=== PATIENT | male | born 1935 | race African-American/Black ===

== ENCOUNTER 2016-12-25 14:03 | Inpatient (IN) | payer BC ==
--- NOTE | ~2016-12-25 | DS ---
Discharge Summary [facility] [address] [facility] [place]. [address] NAME: ELDA WALKER : 37 STATUS : DIS IN PAT#: [id number] AGE: 81 ADM/REG DATE : 12/25/16 MR#: [id number] REPORT SERV DATE: 12/29/16 DICTATED BY: JR. AVILA WILLIAM JOHN DATE: 12/28/16 REPORT STATUS : Draft TRANSCRIBED BY: MODL DATE: 12/28/16 ADMISSION DATE: 12/25/2016 DISCHARGE DATE: 12/28/2016 DISCHARGE DIAGNOSES: Include: 1. Elevated troponins with no regional wall motion nor systolic dysfunction on echo. 2. Rhabdomyolysis. 3. Hypokalemia. 4. Renal insufficiency. 5. History of right total hip arthroplasty. 6. Diabetes mellitus type 2 with a hemoglobin A1c of 6. 7. Alcohol abuse. 8. Urinary retention. OPERATIONS/PROCEDURES AND TREATMENTS: Include: 1. Chest x-ray done 12/25/2016, which showed COPD without acute process. 2. Right femur x-ray done 12/25/2016, which showed normal alignment of right hip prosthesis with possible loosening of the femoral stem. No acute fracture or dislocation. 3. Hip x-ray done 12/25/2016, which showed same as above. 4. Echocardiogram done 12/27/2016, which showed an ejection fraction of 55% to 60% with mild diastolic dysfunction. Right ventricular size and function were normal. 5. Right femur x-ray done 12/27/2016 showed no acute abnormality without change from 12/25/2016. DISCHARGE MEDICATIONS: Include: 1. Folate 1 mg orally daily. 2. Glipizide 2.5 mg orally every morning. 3. Sliding scale Humalog insulin level 1. 4. Multivitamin one tablet orally daily. 5. Protonix 40 mg orally daily. 6. Potassium chloride 20 mEq orally daily. 7. Flomax 0.4 mg orally daily. 8. Maxzide 25 mg daily. 9. Tylenol as needed. 10.Colace 100 mg orally daily as needed. HOSPITAL COURSE: The patient is a 81-year-old black male, presented to the emergency room on 12/25/2016 after a fall with right hip pain. The patient had been living on his own for about three years, was barely functional and had progressive dementia. 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 On the morning of presentation, he did not answer the door, eventually accessed was gained to the house and the patient was in bed, said that he had been "drinking," fell on the bathroom floor and was there for an undetermined amount of time. He came in to the emergency room with complaint of right hip pain. Workup in the emergency room was significant for stable vital signs. However, his BUN and creatinine were 35 and 1.8. Baseline was unknown. CK was 7151 and troponin I was 0.05. Urinalysis showed Discharge Summary [facility] [address] [place]. [address] NAME: ELDA WALKER : 37 STATUS : DIS IN PAT#: [id number] AGE: 81 ADM/REG DATE : 12/25/16 MR#: [id number] REPORT SERV DATE: 12/29/16 DICTATED BY: JR. AVILA WILLIAM JOHN DATE: 12/28/16 REPORT STATUS : Draft TRANSCRIBED BY: VICENTE DATE: 12/28/16 no evidence of urinary tract infection. 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 The patient was admitted to the hospital for rhabdomyolysis. He was placed on IV fluid normal saline at 125 mL/h and his creatine kinase gradually fell. By the day of discharge, the patient's CK was 936. His BUN and creatinine gradually improved during the same time. Discharge BUN is 19, creatinine is 1.4. I suspect this is baseline for the patient. The patient also developed urinary retention. Bladder scan showed over 800 mL of urine. He was placed on Flomax and Melgar catheter was placed, and a voiding trial was done on the day of discharge. Unfortunately, he urinated about every 15 minutes for only very small amounts; therefore, a Melgar catheter will be replaced and would recommend a voiding trial again in about one week with continuation of the Flomax. Regarding the patient's elevated troponin, I discussed with the family, they did not desire a full ischemic workup. We did an echocardiogram. There was no evidence of regional wall motion abnormalities or hypocontractility. We will defer further workup at this time. Regarding alcohol abuse, the patient showed no evidence of delirium tremens. [facility]2016 for rehabilitation. Followup issues include: 1. Check BMP early next week. 2. Voiding trial in about one week. 3. Physical therapy and occupational therapy. DIET: ADA. ACTIVITY: As tolerated. For discharge exam and laboratory, please see daily progress note. This discharge took 40 minutes for patient encounter, coordination of care, and documentation. NATHALY/VICENTE Jorge Avila Jr, MD / [id number] CC: Jorge Avila Jr, MD Glenn Newman, M.D.
--- NOTE | ~2016-12-25 | HP ---
History And Physical [place] [id number] [facility] [place]. [address] NAME: ELDA WALKER : 37 STATUS : ADM Efra PAT#: [id number] AGE: 81 ADM/REG DATE : 12/25/16 MR#: [id number] REPORT SERV DATE: 12/25/16 DICTATED BY: JR. AVILA WILLIAM JOHN DATE: 12/25/16 REPORT STATUS : Draft TRANSCRIBED BY: MODMarcela DATE: 12/25/16 DATE OF ADMISSION: 12/25/2016 PRIMARY CARE PHYSICIAN: Florencio Lawrence MD, also sees Dr. Mast at the ID. HISTORY OF PRESENT ILLNESS: A 81-year-old black male presents to the emergency room with a fall and right hip pain. The patient has been living on his own for about three years. He is barely functional per the family and has dementia per the family. The patient denies any history of memory loss. The patient apparently has a manager user experience who comes in occasionally, also has a neighbor who checks on him daily to make sure he is taking his medicines. This morning the neighbor went to check on the medicines, the patient did not answer the door, and eventually, the neighbor was able to gain access to the house, and the patient was in bed and reportedly was "drinking," fell in the bathroom, and spent an unknown amount of time on the bathroom floor. Subsequently, the patient complains of right hip pain. He denies all other complaints. The patient is quite vague about his alcohol use. PAST MEDICAL HISTORY: Includes, 1. Hypertension. 2. Chronic kidney disease. 3. Diabetes mellitus type 2. 4. History of dementia. 5. Right total hip arthroplasty done by Dr. Hansen. 6. History of positive PPD. HOME MEDICATIONS: Include Lipitor 10 mg orally daily, Glucotrol 2.5 daily, multivitamin daily, omeprazole 20 daily, potassium chloride 20 mEq daily, tramadol 50 twice a day as needed, Maxzide 37.5/25 daily. ALLERGIES: NO KNOWN DRUG ALLERGIES. FAMILY HISTORY: Mother in her 40s of homicide. Father who at an unknown age was an alcoholic. SOCIAL HISTORY: Lives alone in [place]. 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 He drinks vodka, unsure amount. He smokes about a pack per day, again unsure duration. Denies illicit drugs. Code status was discussed with the patient. He is likely not of decision making capacity, however, his daughter, who is power of mergers and acquisitions attorney, was unable to be contacted. He states he desires full resuscitative measures. REVIEW OF SYSTEMS: Negative in a full review of systems except for right hip pain. PHYSICAL EXAMINATION: VITAL SIGNS: Temperature 97.5, blood pressure 222/111, heart rate 92, respiratory rate of History And Physical [address] [address] NAME: ELDA WALKER : 37 STATUS : ADM Efra PAT#: [id number] AGE: 81 ADM/REG DATE : 12/25/16 MR#: [id number] REPORT SERV DATE: 12/25/16 DICTATED BY: JR. AVILA WILLIAM JOHN DATE: 12/25/16 REPORT STATUS : Draft TRANSCRIBED BY: VICENTE DATE: 12/25/16 21. GENERAL: Patient was alert. He was partially oriented. HEENT: Pupils are equal, round, react to light. Extraocular motions intact. Sclerae anicteric. Oropharynx clear. NECK: Supple without jugular venous distention, thyromegaly, or bruits. Mucosal membranes were dry. CARDIOVASCULAR: S1, S2 without gallop, murmur, or rub. There is regular rate and rhythm. Heart sounds were distant. LUNGS: Clear to auscultation bilaterally with symmetrical chest rise. ABDOMEN: Soft, nontender, bowel sounds present. No hepatosplenomegaly. EXTREMITIES: No clubbing, cyanosis, edema. NEUROLOGIC: Cranial nerves 2 through 12 were intact. Strength and sensation were full and equal throughout. MUSCULOSKELETAL: There was no significant pain with flexion of the hip nor external rotation. There was no pain with pressure applied to the hip. LYMPH NODE SURVEY: Negative in the cervical and supraclavicular region. PSYCHIATRIC: Mood and affect were appropriate. LABORATORY DATA: White count 9.5, hemoglobin 12.8, platelets 232. PT of 14.5 with an INR 1.1, PTT 34.9. Sodium 143, potassium 3.3, chloride 101, bicarb 34, BUN 35, creatinine 1.8, glucose 121, magnesium 2, calcium 10.2, lipase 220, CK 7151, troponin I 0.05. Urinalysis without pyuria. Chest x-ray showed hyperlucency. No infiltrate. Right femur x-ray showed hip prosthesis in normal alignment with possible loosening. No fracture or dislocation. EKG shows sinus rhythm at rate 92 with a right bundle-branch block and left anterior fascicular block. ASSESSMENT AND PLAN: A 81-year-old black male with, 1. Rhabdomyolysis. Give IV fluids, normal saline 125 mL/h. Recheck BMP and CK in the morning. 2. Hypertension. We will continue his Maxzide. 3. Hypokalemia. Replace per protocol. 4. Renal insufficiency of unknown chronicity. We will send for records of old labs from primary care provider, Florencio Lawrence. 5. Elevated troponin without symptoms. The EKG showed no acute ST or T-wave change. We will get serial troponin for trending. 6. History of right total hip arthroplasty with possible loose hardware. The family seems to indicate that he has known that he potentially had loosening, but did not desire revision in the past. 7. Diabetes mellitus type 2. We will perform Accu-Cheks, sliding scale insulin level 1. We will also check a glycohemoglobin. 8. Alcohol use of unknown amount. We will monitor for delirium tremens. 9. Dementia. 10.Full code. 11.Observation. 12.I will follow this patient. History And Physical [address] [address] NAME: ELDA WALKER : 37 STATUS : ADM Efra PAT#: [id number] AGE: 81 ADM/REG DATE : 12/25/16 MR#: [id number] REPORT SERV DATE: 12/25/16 DICTATED BY: JR. AVILA WILLIAM JOHN DATE: 12/25/16 REPORT STATUS : Draft TRANSCRIBED BY: VICENTE DATE: 12/25/16 NATHALY/VICENTE Jorge Avila Jr, MD / [id number] CC: Jorge Avila Jr, MD
[~2016-12-25 14:03] MED LIST: ARICEPT10 PO; DONEPEZIL; FERROUS SULFATE; FERROUS SULFATE OR; KLOR-CON M2020 MEQ PO; LORTAB 5 PO; MAX25 PO; MULTIVIT/MIN PO; NASONEX NAS; NEXIUM40 PO; NORV5 PO; TRIAMTERENE-HCTZ; UREA CREAM; VESICARE10 MG PO; Vesicare; ZOCOR40 PO; [UNRECOGNIZED DRUG - OTHER] EX
[2016-12-25 14:08] LABS: WBC (NOT ORDERED) (RFLEX) 0 (0-5)
[2016-12-25 14:13] LABS: BASOPHILS 0.2 %; BASOPHILS ABSOLUTE 0.02 10/3/uL (0.0-0.16); EOSINOPHILS 0.5 %; EOSINOPHILS ABSOLUTE 0.05 10/3/uL (0.0-0.53); HEMATOCRIT 38.8 % (40.0-51.0); HEMOGLOBIN 12.8 g/dL (13.6-17.8); IMMATURE GRANULOCYTES 0.1 %; IMMATURE GRANULOCYTES ABSOLUTE 0.01 10/3/uL (0.0-0.11); LYMPHOCYTES 14.4 %; LYMPHOCYTES ABSOLUTE 1.37 10/3/uL (0.67-4.30); MEAN CORPUSCULAR HEMOGLOB 28.4 pg (26.0-34.0); MEAN PLATELET VOLUME 10.4 fL (9.2-13.0); MONOCYTES 10.1 %; MONOCYTES ABSOLUTE 0.96 10/3/uL (0.21-1.20); NEUTROPHILS 74.7 %; NEUTROPHILS ABSOLUTE 7.13 10/3/uL (2.02-8.40); PLATELET COUNT 232 10/3/uL (150-400); RBC DISTRIBUTION WIDTH 14.1 % (12.0-16.0); RED CELL COUNT 4.51 10/6/uL (4.7-6.1); WHITE BLOOD CELLS 9.5 10/3/uL (4.5-10.5)
[2016-12-25 14:16] LABS: MANUAL DIFF NO %
[2016-12-25 14:18] LABS: ASCORBIC ACID (UR NOT ORDER) NEG (NEG); BILIRUBIN, URINE NEGATIVE (NEG); ER URINALYSIS TAT 0 Hrs 11 Mins; KETONE, URINE NEGATIVE (NEG); LEUKOCYTE ESTERASE(NOT OR NEG (NEG); NITRITE (URINE) NEG (NEG)
[2016-12-25 14:23] LABS: INTERNATIONAL NORMAL RATI 1.1 UNITS (-); PARTIAL THROMBO TIME 34.9 SEC (22.5-37.2); PROTIME (NOT ORD) 14.5 SEC (12.0-14.5)
[2016-12-25 14:41] LABS: BUN (BLOOD UREA NITROGEN) 35 MG/DL (6-23); CALCIUM, SERUM 10.2 MG/DL (8.5-10.4); CHEST PAIN PROFILE TAT 0 Hrs 34 Mins; CHLORIDE, SERUM 101 MMOL/L (96-112); CO2 (CARBON DIOXIDE) 34 MMOL/L (24-34); CREATININE 1.75 MG/DL (0.70-1.30); GFR AFRICAN AMERICAN 42 ML/MIN (>=60); GFR NON AFRICAN AMERICAN 36 ML/MIN (>=60); GLUCOSE, SERUM 121 MG/DL (60-99); POTASSIUM, SERUM 3.3 MMOL/L (3.5-5.3); SODIUM, SERUM 143 MMOL/L (135-148); TROPONIN I 0.05 NG/ML (<0.05)
[2016-12-25 14:52] LABS: CPK 7154 U/L (0-200)
[2016-12-25] MEDS ORDERED: MAX25 PO (16:05)
[2016-12-25] MEDS ORDERED: PRILO PO (16:05)
[2016-12-25] MEDS ORDERED: LIPITOR10 PO (16:05)
[2016-12-25] MEDS ORDERED: GLUCOTROL5 PO (16:05)
[2016-12-25] MEDS ORDERED: ULTRAM50 PO (16:05)
[2016-12-25] MEDS ORDERED: KDUR20 PO (16:06)
[2016-12-25] MEDS ORDERED: CENTRUM PO (16:07)
[2016-12-25] MEDS ORDERED: NORCO1 TA1 (16:07)
[2016-12-26 01:52] LABS: POTASSIUM, SERUM 3.4 MMOL/L (3.5-5.3)
[2016-12-26 01:54] LABS: TROPONIN I 0.12 NG/ML (<0.05)
[2016-12-26 03:24] LABS: BASOPHILS 0.5 %; BASOPHILS ABSOLUTE 0.04 10/3/uL (0.0-0.16); EOSINOPHILS 1.5 %; EOSINOPHILS ABSOLUTE 0.13 10/3/uL (0.0-0.53); HEMATOCRIT 35.2 % (40.0-51.0); HEMOGLOBIN 11.8 g/dL (13.6-17.8); IMMATURE GRANULOCYTES 0.2 %; IMMATURE GRANULOCYTES ABSOLUTE 0.02 10/3/uL (0.0-0.11); LYMPHOCYTES 22.7 %; LYMPHOCYTES ABSOLUTE 1.91 10/3/uL (0.67-4.30); MANUAL DIFF NO %; MEAN CORPUS HGB CONC 33.5 g/dL (32.0-36.0); MEAN CORPUSCULAR HEMOGLOB 28.9 pg (26.0-34.0); MEAN CORPUSCULAR VOLUME 86.3 fL (80-100); MEAN PLATELET VOLUME 10.6 fL (9.2-13.0); MONOCYTES 8.4 %; MONOCYTES ABSOLUTE 0.71 10/3/uL (0.21-1.20); NEUTROPHILS 66.7 %; NEUTROPHILS ABSOLUTE 5.61 10/3/uL (2.02-8.40); PLATELET COUNT 213 10/3/uL (150-400); RBC DISTRIBUTION WIDTH 13.9 % (12.0-16.0); RED CELL COUNT 4.08 10/6/uL (4.7-6.1); WHITE BLOOD CELLS 8.4 10/3/uL (4.5-10.5)
[2016-12-26 04:06] LABS: BUN (BLOOD UREA NITROGEN) 33 MG/DL (6-23); CHLORIDE, SERUM 109 MMOL/L (96-112); CO2 (CARBON DIOXIDE) 30 MMOL/L (24-34); CPK 4941 U/L (0-200); GFR AFRICAN AMERICAN 43 ML/MIN (>=60); GFR NON AFRICAN AMERICAN 38 ML/MIN (>=60); GLUCOSE, SERUM 98 MG/DL (60-99); POTASSIUM, SERUM 3.4 MMOL/L (3.5-5.3); SODIUM, SERUM 148 MMOL/L (135-148)
[2016-12-26 04:07] LABS: CALCIUM, SERUM 9.1 MG/DL (8.5-10.4)
[2016-12-27 04:45] LABS: CALCIUM, SERUM 9.1 MG/DL (8.5-10.4); CHLORIDE, SERUM 106 MMOL/L (96-112); CO2 (CARBON DIOXIDE) 29 MMOL/L (24-34); CREATININE 1.41 MG/DL (0.70-1.30); GFR AFRICAN AMERICAN 55 ML/MIN (>=60); GFR NON AFRICAN AMERICAN 47 ML/MIN (>=60); GLUCOSE, SERUM 107 MG/DL (60-99); SODIUM, SERUM 145 MMOL/L (135-148)
[2016-12-27 04:46] LABS: BUN (BLOOD UREA NITROGEN) 25 MG/DL (6-23); CPK 2420 U/L (0-200); POTASSIUM, SERUM 3.4 MMOL/L (3.5-5.3)
[2016-12-28 05:52] LABS: CALCIUM, SERUM 9.1 MG/DL (8.5-10.4); CHLORIDE, SERUM 103 MMOL/L (96-112); CO2 (CARBON DIOXIDE) 26 MMOL/L (24-34); CPK 936 U/L (0-200); CREATININE 1.35 MG/DL (0.70-1.30); GFR AFRICAN AMERICAN 57 ML/MIN (>=60); GFR NON AFRICAN AMERICAN 50 ML/MIN (>=60); GLUCOSE, SERUM 90 MG/DL (60-99); POTASSIUM, SERUM 3.4 MMOL/L (3.5-5.3); SODIUM, SERUM 142 MMOL/L (135-148); TROPONIN I 0.02 NG/ML (<0.05)
[2016-12-28 05:54] LABS: BUN (BLOOD UREA NITROGEN) 19 MG/DL (6-23)
[2017-02-13] MEDS ORDERED: NORV5 PO (13:47)
[2017-02-13] MEDS ORDERED: BACIT TOP (13:48)
[2017-02-13] MEDS ORDERED: PRILO PO (13:48)
[2017-02-13] MEDS ORDERED: MAGOX4 PO (13:48)
[2017-02-13] MEDS ORDERED: MOMUD PO (13:49)
[2017-02-13] MEDS ORDERED: BISR PR (13:49)
[2017-02-13] MEDS ORDERED: VITC500 PO (13:49)
[2017-02-13] MEDS ORDERED: ULTRAM50 PO (13:50)
[2017-02-14] MEDS ORDERED: [UNRECOGNIZED DRUG - OTHER] PO (11:47)
[2017-02-14] MEDS ORDERED: FLEETS ENEMA PR (11:48)
[2017-03-26] MEDS ORDERED: SILVER SULFADIAZINE TOP (11:47)
[2017-05-27] MEDS ORDERED: SANTYL TOP (07:26)
[2017-05-27] MEDS ORDERED: ULTRAM50 PO (07:29)
[2017-06-21] MEDS ORDERED: IODOSORB TOP (10:10)
[2017-06-21] MEDS ORDERED: ZINC220C PO (10:13)
[2017-06-21] MEDS ORDERED: NORCO1 TA1 PO (10:15)
[2017-06-24] MEDS ORDERED: JUVEN PO (08:05)
[2017-06-24] MEDS ORDERED: SANTYL OINTMENT T (08:15)
== END 2016-12-28 18:14 | DRG 565 ==
LOC: ER 14:03 → CDU1 16:44 → CDU2 18:40
PROVIDERS: Internal Medicine; Physician Assistant
DX: T79.6XXA Traumatic ischemia of muscle, initial encounter (principal); I45.2 Bifascicular block; F03.90 Unspecified dementia, unspecified severity, without behavioral disturbance, psychotic disturbance, mood disturbance, and anxiety; E87.6 Hypokalemia; E11.9 Type 2 diabetes mellitus without complications; F10.10 Alcohol abuse, uncomplicated; F17.210 Nicotine dependence, cigarettes, uncomplicated; R33.9 Retention of urine, unspecified; N28.9 Disorder of kidney and ureter, unspecified; R78.9 Finding of unspecified substance, not normally found in blood; W19.XXXA Unspecified fall, initial encounter; M25.551 Pain in right hip; Z79.84 Long term (current) use of oral hypoglycemic drugs; Z81.1 Family history of alcohol abuse and dependence; Z96.641 Presence of right artificial hip joint
CPT/HCPCS: 71010; 73501-RT; 73552-RT; 80048; 81001; 82550; 82962; 83036; 83690; 83735; 84132; 84484; 85025; 85610; 85730; 93005; 93306; 97110-GO; 97162-GP; 97166-GO; 99285; A9270-GY; J0360; J3411

== ENCOUNTER 2017-01-04 13:55 | Inpatient (IN) | payer BC ==
--- NOTE | ~2017-01-04 | OP ---
Record Of Operation [facility] [address] [place]. [address] NAME: ELDA WALKER : 37 STATUS : ADM IN PAT#: [id number] AGE: 81 ADM/REG DATE : 01/04/17 MR#: [id number] REPORT SERV DATE: 01/15/17 DICTATED BY: FAISAL BOWLING DATE: 01/15/17 REPORT STATUS : Draft TRANSCRIBED BY: MODL DATE: 01/15/17 DATE OF PROCEDURE: 01/15/2017 PREOPERATIVE DIAGNOSIS: Paraphimosis, chronic with distal urethral fistula/erosion. 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 OPERATIVE PROCEDURE: Debridement of distal urethra with circumcision. ANESTHESIA: General inhalation. SURGEON: Dr. Bowling. ESTIMATED BLOOD LOSS: 10 mL. SPECIMENS: Foreskin involving area of penile constricting tissue from paraphimosis. DRAINS: One #16 suprapubic tube placed at a previous procedure. IMMEDIATE POSTOP: Stable. DESCRIPTION OF PROCEDURE: The patient was brought into surgery suite, given general inhalational anesthetic by LMA. After debridement of the distal penile urethra which was necrotic, there appeared to be no viable urethral tissue noted at least ventrally. Hemostasis was obtained with electrocautery at this point, and the urethra was copiously irrigated. Following this, a circumcision was performed. This did involve skin which did overlie the fistulous erosion tract. The constricting paraphimotic skin was dissected free using a combination of blunt and sharp dissection and Bovie cautery where indicated. The skin edges were approximated, sutured together using interrupted 3-0 chromic catgut. The closure looked nice and clean at the end of the procedure. It did involve closing over the area where the urethra had been and the necrotic urethra had been excised. The urethral meatus remained patent; however, there was no continuity between the meatus and the more proximal urethra. At the close of procedure, sterile dressing was placed on the penis. The patient was awakened and sent to the recovery in stable condition. /VICENTE Faisal Bowling M.D. / [id number] CC: Record Of Operation [address] [place]. [address] NAME: ELDA WALKER : 37 STATUS : ADM IN [facility]#: [id number] AGE: 81 ADM/REG DATE : 01/04/17 MR#: [id number] REPORT SERV DATE: 01/15/17 DICTATED BY: FAISAL BOWLING DATE: 01/15/17 REPORT STATUS : Draft TRANSCRIBED BY: MODL DATE: 01/15/17 Florencio Lawrence M.D.
--- NOTE | ~2017-01-04 | DS ---
Discharge Summary [facility] [address] [facility] [place]. [address] NAME: ELDA WALKER : 37 STATUS : DIS IN PAT#: [id number] AGE: 81 ADM/REG DATE : 01/04/17 MR#: [id number] REPORT SERV DATE: 01/31/17 DICTATED BY: DIVYA LIZARRAGA DATE: 01/30/17 REPORT STATUS : Draft TRANSCRIBED BY: MODMarcela DATE: 01/30/17 Data Collection from hospitalization DISCHARGE DIAGNOSES: 1. Febrile illness - unclear etiology. 2. Paraphimosis. 3. Acute kidney injury on chronic kidney disease, stage II-III - resolved. 4. Type 2 diabetes mellitus. 5. Enterococcus faecalis urinary tract infection. 6. Hypertension. 7. Alzheimer dementia. 8. Hypercholesterolemia. 9. History of alcohol, tobacco, and marijuana abuse. CONSULTATIONS: 1. Spenser Gilbert M.D. 2. Jayesh Garcia M.D. 3. Faisal Tello M.D. PROCEDURES PERFORMED: 1. Debridement of distal urethra with circumcision on 01/15/2017. 2. Ultrasound and fluoroscopic guided placement of suprapubic tube on 01/14/2017. PATHOLOGY: Foreskin of penis circumcision - areas of fibrinoid necrosis and acute inflammation - see comment. MEDICATIONS: Norvasc 5 mg twice a day, Colace 100 mg twice a day, Glucotrol 2.5 mg with breakfast, Humalog as instructed, NovoLog injection insulin as instructed, Mag-Ox 400 mg once a day as instructed, Theragran tablets one tablet daily, Bactroban ointment applied to the proximal head of penis twice a day for 10 days as instructed, Protonix 40 mg before breakfast, Maxzide 12.5 mg daily, vancomycin as instructed, Tylenol 650 mg per rectum every four hours as needed, Zofran 4 mg every four hours as needed, KCl 20 mEq as instructed, Catapres 0.1 mg every eight hours as needed and as instructed, and Zosyn 3.375 g IV every six hours through 01/23/2017 then discontinue. CONDITION AT DISCHARGE: Stable. DISPOSITION: The patient was discharged to [facility] on a 2000-calorie diabetic diet with activities as instructed. HOSPITAL COURSE: This is a 81-year-old man who presented to the emergency department with an obstructed Mlegar catheter on transfer from [facility]. In the emergency room, it was discovered that the balloon had been inflated in the urethra and there was an accessory trach placement for the Melgar. It was not draining to any significant degree and it was felt that the patient was probably suffering from obstructive uropathy. He voiced no complaints and seemed to be in good spirits. However, in the emergency department, it was found that he definitely had a urinary tract infection. Procalcitonin level was significantly elevated. He was cultured and antibiotic therapy was started. The Melgar was Discharge Summary [facility] [address] [place]. [address] NAME: ELDA WALKER : 37 STATUS : DIS IN PAT#: [id number] AGE: 81 ADM/REG DATE : 01/04/17 MR#: [id number] REPORT SERV DATE: 01/31/17 DICTATED BY: DIVYA LIZARRAGA DATE: 01/30/17 REPORT STATUS : Draft TRANSCRIBED BY: VICENTE DATE: 01/30/17 removed and replaced was an appropriate positioned Melgar, which was now draining urine freely. The patient states that he was basically feeling a lot better after this. He had a history of indwelling Melgar since his discharge from [facility] approximately one week prior to this admission for rhabdomyolysis after being admitted on 12/25/2016 due to a fall. He has a history of Alzheimer's dementia and history is very poor. He was admitted to the hospital at this time for further evaluation and treatment. Upon admission, white blood cell count was 23.9. He was felt to have acute kidney injury on level 2 chronic kidney disease secondary to obstructive uropathy from Melgar obstruction. He was felt to have an acute urinary tract infection. Procalcitonin was increased. It was felt that this was probably secondary to underlying urinary tract infection and acute kidney injury. IV fluids were going to be given to balance intake and output. Melgar would be replaced. He had been treated with one dose of vancomycin and Levaquin initially, although he had already been given Rocephin in the emergency room first. Blood and urine cultures were obtained. Electrolytes would be followed closely. Sliding scale insulin would be provided. Proton pump inhibitor, multivitamin, and DT precautions would be given. The patient requested a full code status. His dementia is moderate. The following day, he had no new complaints. He was eating well. Melgar was draining clear urine. He developed some confusion that evening. He was felt to have obstructive uropathy secondary to the Melgar. IV fluids were continued. We re-dosed the vancomycin. A dose of Rocephin was also given. He had no specific complaints. He did have some confusion. He did complain of some severe right elbow pain. His penile edema had decreased. He had no erythema. No phimosis was seen. He had good Melgar output. He was changed to ampicillin, which would cover both Enterococcus faecalis and Listeria. Vancomycin and Rocephin had been stopped. He had been changed to oral ampicillin. On 01/09/2017, he was less alert, but denied any pain except in the right elbow. He denied any trauma. His T-max was 100. Acute kidney injury on chronic kidney disease had resolved. He does have a right elbow effusion. He was seen by Dr. Spenser Gilbert regarding right elbow pain - gout versus septic arthritis. He denied any trauma, cuts, abrasions, or falls. He denied any left arm pain. Given the clinical picture and the patient's history, he felt it was prudent to proceed with aspiration, this was performed using a sterile technique, approximately 1 to 1.5 mL of straw-colored fluid was aspirated. This was sent for evaluation. On 01/10/2017, he seemed to be more alert. He said the right elbow was sore. White count was 17. Oral ampicillin was continued. He was seen by Dr. Faisla Tello regarding penile edema. The patient has had a chronic Melgar for about a month. Attempts to digitally reduce the paraphimosis, we were at least partially successful as he was able to get the glans covered; however, there were concerns that this may require intervention at some point. He was also seen by Dr. Jayesh Garcia regarding evaluation and treatment of potentially multiple infections. He felt that the genitourinary tract infection secondary to trauma had been treated adequately. The patient has bacteremia with gram-positive rods and it was felt that Listeria and anaerobe could be two possibilities, although so far it was felt unlikely by microbiology, but final identification was pending. The patient had septic arthritis of the elbow. The patient was going to be changed to Zosyn to cover the septic arthritis, the bacteremia and finish off treatment for urinary tract infection. We would follow up the blood cultures once more information on that was obtained. On 01/12/2017, he had no new complaints. Creatinine was 1.2. His temperature was 102.3. Sepsis syndrome was felt to be improving. He looked better. IV fluids were decreased. IV Zosyn was continued. The next day, he said he was Discharge Summary [address] [place]. [address] NAME: ELDA WALKER : 37 STATUS : DIS IN PAT#: [id number] AGE: 81 ADM/REG DATE : 01/04/17 MR#: [id number] REPORT SERV DATE: 01/31/17 DICTATED BY: DIVYA LIZARRAGA DATE: 01/30/17 REPORT STATUS : Draft TRANSCRIBED BY: VICENTE DATE: 01/30/17 feeling better. He said he was sore all over. He was afebrile. The patient does have persistent/recurrent paraphimosis. The glans was viable. It was felt that the patient would require surgical intervention with regard to the paraphimosis/meatal erosion. On 01/14/2017, he did have a temperature spike to 102.6, but was now afebrile. The patient underwent ultrasound and fluoroscopic guided placement of a suprapubic tube. The following day, he was taken to the operating room by Dr. Faisal Tello, where he underwent the above-mentioned procedure. He tolerated this well, and there were no complications. On postop day #1, he had no specific complaints. Urinary tract infection had resolved. Antibiotics were continued. The glans looked quite viable. There was mild edema as expected. No drainage was seen. Blood cultures were now negative. On 01/17/2017, he looked comfortable. He had no new complaints. White count was 11.8. Only slight edema of the glans. The suprapubic tube was draining clear urine. Blood cultures remained negative. He was reevaluated by Physical Therapy. On 01/18/2017, he was afebrile. White count was 12.3. He had no new complaints. He said he felt much stronger. Discharge instructions were given. Due to his improved and stable condition, he was discharged to [facility] with the above-stated instructions. Information collected by: Liz Crow I submit the above information as my discharge summary. TG/MODL Divya Lizarraga M.D. / [id number] CC: Raissa Fregoso M.D. Justin M. Arnold, M.D. Marty Scheinberg, M.D. [facility]
--- NOTE | ~2017-01-04 | CN ---
Consultation Report [facility] [address] [place]. [address] NAME: ELDA WALKER : 37 STATUS : ADM IN PAT#: [id number] AGE: 81 ADM/REG DATE : 01/04/17 MR#: [id number] REPORT SERV DATE: 01/14/17 DICTATED BY: FAISAL BOWLING DATE: 01/14/17 REPORT STATUS : Draft TRANSCRIBED BY: MODL DATE: 01/14/17 CONSULTATION DATE OF CONSULTATION: 01/10/2017 REASON FOR CONSULTATION: Penile edema. HISTORY OF PRESENT ILLNESS: Mr. Walker is a 81-year-old, black gentleman with multiple medical problems including history of CVA, who was admitted from nursing facility with penile edema and possible urinary infection. He has complicated medical history which included what Dr. Lawrence related to me is an infected elbow. He has had a chronic Melgar catheter for about a month. He cannot give any history whatsoever and there is no family present. He has had fever and leukocytosis, as I have been reviewed in the chart. He is currently on broad-spectrum antibiotics and is being seen by Dr. Jayesh Garcia from Infectious Disease as well. PHYSICAL EXAMINATION: GENERAL: This is a pleasant, little, 81-year-old, gentleman, who is confused. ABDOMEN: Not distended. CHEST: Clear. GENITALIA: Uncircumcised penis with retracted foreskin and a tight preputial ring with distal penile edema consistent with paraphimosis. There was an area underneath the ventrum of the glans which does appear to be early ulceration. Testes and perineum unremarkable. Rectal exam not done. EXTREMITIES: Unremarkable. IMPRESSION: Paraphimosis. PLAN: Attempts to digitally reduce the paraphimosis were at least partially successful as I was able to get the glans covered. However, I do have concerns that this may require intervention at some point. I have discussed this in detail with Dr. Lawrence and my initial conferences was opposed to any surgical intervention at that time. We will continue to follow with you, particularly following the viability of the glans penis as well as the ulcerated area, as this may well represent early catheter erosion. We will also make attempts to discuss with family when they are present. Thanks very much for asking me to see Mr. Walker. MS/VICENTE Faisal Consultation Report [facility] [address] [address] NAME: ELDA WALKER : 37 STATUS : ADM IN PAT#: [id number] AGE: 81 ADM/REG DATE : 01/04/17 MR#: [id number] REPORT SERV DATE: 01/14/17 DICTATED BY: FAISAL BOWLING DATE: 01/14/17 REPORT STATUS : Draft TRANSCRIBED BY: MODMarcela DATE: 01/14/17 Raissa Bowling / [id number] CC: Florencio Lawrence M.D.
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
--- NOTE | ~2017-01-04 | CN ---
Consultation Report [facility] [address] [place]. [address] NAME: ELDA WALKER : 37 STATUS : ADM IN [facility]#: [id number] AGE: 81 ADM/REG DATE : 01/04/17 MR#: [id number] REPORT SERV DATE: 01/10/17 DICTATED BY: EMIL NELSON DATE: 01/09/17 REPORT STATUS : Draft TRANSCRIBED BY: MODL DATE: 01/09/17 ORTHOPEDIC HAND CONSULTATION DATE OF CONSULTATION: 01/09/2017 REASON: Right elbow pain, gout versus septic arthritis. HISTORY OF PRESENT ILLNESS: Mr. Walker is a 81-year-old gentleman who was admitted on 01/04/2017 from [facility] with obstructive uropathy and a background history of dementia. Over the last few days, he is complaining of increasing right elbow pain, had some bacteremia, as well as UTI and concern was for septic process versus gout. He had no known history of gout; however, the patient with background history of Alzheimer's dementia, fairly poor historian, who presents with a history as per the charts. In speaking with him, he does complain of some right elbow pain when he moves it. He denies any trauma. Denies any cuts or abrasions or falls. Denies any left arm pain. PAST MEDICAL HISTORY: Significant for rhabdomyolysis after a fall; COPD; history of lung mass, status post biopsy; hip fracture; hypertension; diabetes; chronic kidney disease; alcohol and drug abuse. MEDICATIONS: Please see list. ALLERGIES: NO KNOWN. REVIEW OF SYSTEMS: Except as above. PHYSICAL EXAMINATION: GENERAL: The patient is resting comfortably in the hospital bed. EXTREMITIES: Examination of his left upper extremity, arm, elbow, forearm, wrist, and hand are nontender. He has full motion. No warmth or erythema. No tenderness. Neurovascularly intact. Examination of the right shoulder and arm is benign. He does have some warmth about the elbow. There are no open wounds or abrasions. There is no erythema or ecchymosis. He is nontender about the bony landmarks. He does have some pain along the ulnar humeral joint laterally and some mild pain with passive range of motion and limited active motion secondary to pain, though it is intact and functional. No pain with passive pronation and supination. No distal forearm, wrist, or hand tenderness. Neurovascularly intact distally. ASSESSMENT AND PLAN: A 81-year-old with right elbow pain, gout versus septic arthritis versus trauma. Given the clinical picture and the patient's history, I feel it is prudent to proceed with aspiration. This was performed using sterile technique. Approximately, 1 to 1.5 mL of straw-colored fluid was aspirated. This was in two tubes for Gram stain and culture as well as for crystal evaluation. These were sent to the lab. Stat Consultation Report [address] [place]. [address] NAME: ELDA WALKER : 37 STATUS : ADM IN PAT#: [id number] AGE: 81 ADM/REG DATE : 01/04/17 MR#: [id number] REPORT SERV DATE: 01/10/17 DICTATED BY: EMIL NELSON DATE: 01/09/17 REPORT STATUS : Draft TRANSCRIBED BY: VICENTE DATE: 01/09/17 results ordered for the Gram stain and culture. The wound was dressed. The patient tolerated the procedure well. We will follow up those labs regarding the next step and follow him with you clinically. ELMA/VICENTE Emil Nelson M.D. / [id number] CC: Florencio Lawrence M.D.
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
[~2017-01-04 13:55] MED LIST changes: +CENTRUM PO; +GLUCOTROL5 PO; +KDUR20 PO; +LIPITOR10 PO; +NORCO1 TA1; +PRILO PO; +ULTRAM50 PO
[2017-01-04 14:00] LABS: BASOPHILS 0 %; BASOPHILS ABSOLUTE 0.01 10/3/uL (0.0-0.16); EOSINOPHILS 0 %; EOSINOPHILS ABSOLUTE 0.01 10/3/uL (0.0-0.53); HEMATOCRIT 32.9 % (40.0-51.0); HEMOGLOBIN 11.3 g/dL (13.6-17.8); IMMATURE GRANULOCYTES 0.8 %; IMMATURE GRANULOCYTES ABSOLUTE 0.18 10/3/uL (0.0-0.11); LYMPHOCYTES ABSOLUTE 1.19 10/3/uL (0.67-4.30); MEAN CORPUS HGB CONC 34.3 g/dL (32.0-36.0); MEAN CORPUSCULAR HEMOGLOB 28.8 pg (26.0-34.0); MEAN PLATELET VOLUME 11.1 fL (9.2-13.0); MONOCYTES 4.4 %; MONOCYTES ABSOLUTE 1.06 10/3/uL (0.21-1.20); NEUTROPHILS 89.8 %; NEUTROPHILS ABSOLUTE 21.43 10/3/uL (2.02-8.40); PLATELET COUNT 273 10/3/uL (150-400); RBC DISTRIBUTION WIDTH 14.2 % (12.0-16.0); RED CELL COUNT 3.93 10/6/uL (4.7-6.1)
[2017-01-04 14:01] LABS: ER CBC TAT 0 Hrs 10 Mins; MEAN CORPUSCULAR VOLUME 83.7 fL (80-100); WHITE BLOOD CELLS 23.9 10/3/uL (4.5-10.5)
[2017-01-04 14:02] LABS: MANUAL DIFF NO %
[2017-01-04 14:06] LABS: ASCORBIC ACID (UR NOT ORDER) NEG (NEG); BILIRUBIN, URINE NEGATIVE (NEG); ER URINALYSIS TAT 0 Hrs 15 Mins; KETONE, URINE NEGATIVE (NEG); LEUKOCYTE ESTERASE(NOT OR LARGE (NEG); NITRITE (URINE) NEG (NEG); WBC (NOT ORDERED) (RFLEX) 73 (0-5)
[2017-01-04 14:09] LABS: CALCIUM, SERUM 9.2 MG/DL (8.5-10.4); CHLORIDE, SERUM 98 MMOL/L (96-112); CO2 (CARBON DIOXIDE) 24 MMOL/L (24-34); POTASSIUM, SERUM 4.4 MMOL/L (3.5-5.3); SODIUM, SERUM 137 MMOL/L (135-148)
[2017-01-04 14:11] LABS: BUN (BLOOD UREA NITROGEN) 85 MG/DL (6-23); CREATININE 3.63 MG/DL (0.70-1.30); GFR AFRICAN AMERICAN 17 ML/MIN (>=60); GFR NON AFRICAN AMERICAN 15 ML/MIN (>=60); GLUCOSE, SERUM 335 MG/DL (60-99)
[2017-01-04 14:21] LABS: ER DIFF TAT 0 Hrs 30 Mins; LYMPHOCYTES 3 %; LYMPHOCYTES ABSOLUTE (CALC) 0.72 10/3/uL (0.67-4.30); MONOCYTES 8 %; MONOCYTES ABSOLUTE (CALC) 1.91 10/3/uL (0.21-1.20); NEUTROPHILS ABSOLUTE (CALC) 21.27 10/3/uL (2.02-8.40); PLATELET ESTIMATE ADQ (ADEQUATE); SEGMENTED NEUTROPHIL (0) 89 %; TOTAL NUCLEATED CELLS 100
[2017-01-04 14:22] LABS: RBC MORPHOLOGY NORM (NORMAL)
[2017-01-04] MEDS ORDERED: ACETSUP650 PR (15:35)
[2017-01-04] MEDS ORDERED: ZOFRAN4 PO (15:36)
[2017-01-04] MEDS ORDERED: CENTRUM PO (15:36)
[2017-01-04] MEDS ORDERED: GLUCOTROL5 PO (15:37)
[2017-01-04] MEDS ORDERED: CAT1 PO (15:38)
[2017-01-04] MEDS ORDERED: KDUR20 PO (15:38)
[2017-01-04] MEDS ORDERED: HUMALOG SC (15:39)
[2017-01-04] MEDS ORDERED: FLOMAX4 PO (15:39)
[2017-01-04 15:40] LABS: LACTATE 1.7 MMOL/L (0.3-2.4)
[2017-01-04] MEDS ORDERED: MAX25 PO (15:40)
[2017-01-04] MEDS ORDERED: D.O.S.100 MG PO (15:40)
[2017-01-04] MEDS ORDERED: PROTONIX PO (15:40)
[2017-01-04] MEDS ORDERED: CIP5 PO (15:41)
[2017-01-05 05:00] LABS: BASOPHILS 0.1 %; BASOPHILS ABSOLUTE 0.02 10/3/uL (0.0-0.16); EOSINOPHILS 1.7 %; EOSINOPHILS ABSOLUTE 0.31 10/3/uL (0.0-0.53); HEMOGLOBIN 9.9 g/dL (13.6-17.8); IMMATURE GRANULOCYTES 1.5 %; IMMATURE GRANULOCYTES ABSOLUTE 0.26 10/3/uL (0.0-0.11); LYMPHOCYTES 6.3 %; LYMPHOCYTES ABSOLUTE 1.13 10/3/uL (0.67-4.30); MEAN CORPUS HGB CONC 34.7 g/dL (32.0-36.0); MEAN CORPUSCULAR HEMOGLOB 28.7 pg (26.0-34.0); MEAN CORPUSCULAR VOLUME 82.6 fL (80-100); MEAN PLATELET VOLUME 10.4 fL (9.2-13.0); MONOCYTES 10.4 %; MONOCYTES ABSOLUTE 1.87 10/3/uL (0.21-1.20); NEUTROPHILS ABSOLUTE 14.31 10/3/uL (2.02-8.40); PLATELET COUNT 247 10/3/uL (150-400); RBC DISTRIBUTION WIDTH 14.3 % (12.0-16.0); RED CELL COUNT 3.45 10/6/uL (4.7-6.1); WHITE BLOOD CELLS 17.9 10/3/uL (4.5-10.5)
[2017-01-05 05:08] LABS: HEMATOCRIT 28.5 % (40.0-51.0); MANUAL DIFF NO %
[2017-01-05 05:16] LABS: CHLORIDE, SERUM 102 MMOL/L (96-112); CO2 (CARBON DIOXIDE) 25 MMOL/L (24-34); PHOSPHORUS, SERUM 2.9 MG/DL (2.5-4.5); POTASSIUM, SERUM 3.7 MMOL/L (3.5-5.3); SODIUM, SERUM 139 MMOL/L (135-148)
[2017-01-05 05:22] LABS: BUN (BLOOD UREA NITROGEN) 61 MG/DL (6-23); GFR AFRICAN AMERICAN 27 ML/MIN (>=60); GFR NON AFRICAN AMERICAN 24 ML/MIN (>=60); GLUCOSE, SERUM 133 MG/DL (60-99)
[2017-01-06 06:25] LABS: BASOPHILS 0.4 %; BASOPHILS ABSOLUTE 0.05 10/3/uL (0.0-0.16); EOSINOPHILS 3.9 %; EOSINOPHILS ABSOLUTE 0.47 10/3/uL (0.0-0.53); HEMATOCRIT 30.8 % (40.0-51.0); HEMOGLOBIN 10.8 g/dL (13.6-17.8); IMMATURE GRANULOCYTES 2.6 %; IMMATURE GRANULOCYTES ABSOLUTE 0.32 10/3/uL (0.0-0.11); LYMPHOCYTES 11.8 %; LYMPHOCYTES ABSOLUTE 1.43 10/3/uL (0.67-4.30); MEAN CORPUS HGB CONC 35.1 g/dL (32.0-36.0); MEAN CORPUSCULAR HEMOGLOB 28.6 pg (26.0-34.0); MEAN CORPUSCULAR VOLUME 81.7 fL (80-100); MONOCYTES 15.1 %; MONOCYTES ABSOLUTE 1.82 10/3/uL (0.21-1.20); NEUTROPHILS 66.2 %; NEUTROPHILS ABSOLUTE 7.99 10/3/uL (2.02-8.40); PLATELET COUNT 308 10/3/uL (150-400); RBC DISTRIBUTION WIDTH 14.3 % (12.0-16.0); RED CELL COUNT 3.77 10/6/uL (4.7-6.1); WHITE BLOOD CELLS 12.1 10/3/uL (4.5-10.5)
[2017-01-06 06:29] LABS: MANUAL DIFF NO %
[2017-01-06 06:37] LABS: CALCIUM, SERUM 9.1 MG/DL (8.5-10.4); CHLORIDE, SERUM 105 MMOL/L (96-112); CO2 (CARBON DIOXIDE) 27 MMOL/L (24-34); GFR AFRICAN AMERICAN 38 ML/MIN (>=60); GFR NON AFRICAN AMERICAN 33 ML/MIN (>=60); GLUCOSE, SERUM 112 MG/DL (60-99); POTASSIUM, SERUM 3.9 MMOL/L (3.5-5.3); SODIUM, SERUM 142 MMOL/L (135-148); VANCOMYCIN TROUGH 4.7 MCG/ML (10.0-20.0)
[2017-01-06 06:38] LABS: BUN (BLOOD UREA NITROGEN) 40 MG/DL (6-23); CREATININE 1.89 MG/DL (0.70-1.30)
[2017-01-07 06:43] LABS: MEAN CORPUS HGB CONC 34.4 g/dL (32.0-36.0); MEAN CORPUSCULAR HEMOGLOB 28.8 pg (26.0-34.0); MEAN CORPUSCULAR VOLUME 83.7 fL (80-100); MEAN PLATELET VOLUME 11.1 fL (9.2-13.0); PLATELET COUNT 366 10/3/uL (150-400); RBC DISTRIBUTION WIDTH 14.1 % (12.0-16.0); RED CELL COUNT 4.17 10/6/uL (4.7-6.1); WHITE BLOOD CELLS 15.1 10/3/uL (4.5-10.5)
[2017-01-07 06:44] LABS: HEMATOCRIT 34.9 % (40.0-51.0); MANUAL DIFF YES %
[2017-01-07 07:41] LABS: BAND NEUTROPHILS 1 %; BASOPHILS 1 %; BASOPHILS ABSOLUTE (CALC) 0.15 10/3/uL (0.0-0.16); EOSINOPHILS 7 %; EOSINOPHILS ABSOLUTE (CALC) 1.06 10/3/uL (0.0-0.53); LYMPHOCYTES 6 %; LYMPHOCYTES ABSOLUTE (CALC) 0.91 10/3/uL (0.67-4.30); MONOCYTES 8 %; MONOCYTES ABSOLUTE (CALC) 1.21 10/3/uL (0.21-1.20); NEUTROPHILS ABSOLUTE (CALC) 11.78 10/3/uL (2.02-8.40); SEGMENTED NEUTROPHIL (0) 77 %; TOTAL NUCLEATED CELLS 100
[2017-01-07 07:42] LABS: BURR CELLS 1+ (3-10/OIF) (0-2/OIF); PLATELET ESTIMATE ADQ (ADEQUATE); POIKILOCYTOSIS 1+ (5-10/OIF) (0-5/OIF); SCHISTOCYTES OCC (0-2/OIF)
[2017-01-07 07:49] LABS: A/G RATIO 0.5 (0.7-1.9); ALKALINE PHOSPHATASE 78 U/L (45-117); BUN (BLOOD UREA NITROGEN) 28 MG/DL (6-23); CALCIUM, SERUM 8.6 MG/DL (8.5-10.4); CHLORIDE, SERUM 104 MMOL/L (96-112); CO2 (CARBON DIOXIDE) 25 MMOL/L (24-34); CREATININE 1.34 MG/DL (0.70-1.30); GFR AFRICAN AMERICAN 58 ML/MIN (>=60); GFR NON AFRICAN AMERICAN 50 ML/MIN (>=60); GLOBULIN 4.2 G/DL (2.5-4.1); GLUCOSE, SERUM 112 MG/DL (60-99); POTASSIUM, SERUM 3.5 MMOL/L (3.5-5.3); SGOT(AST) 25 U/L (5-40); SGPT(ALT) 36 U/L (5-65); SODIUM, SERUM 140 MMOL/L (135-148); TOTAL BILIRUBIN 0.5 MG/DL (0-1.2); TOTAL PROTEIN 6.2 G/DL (6.0-8.5)
[2017-01-08 06:32] LABS: HEMOGLOBIN 10.7 g/dL (13.6-17.8); MANUAL DIFF YES %; MEAN CORPUS HGB CONC 34.5 g/dL (32.0-36.0); MEAN CORPUSCULAR HEMOGLOB 28.8 pg (26.0-34.0); MEAN CORPUSCULAR VOLUME 83.6 fL (80-100); MEAN PLATELET VOLUME 9.8 fL (9.2-13.0); PLATELET COUNT 380 10/3/uL (150-400); RBC DISTRIBUTION WIDTH 14.1 % (12.0-16.0); RED CELL COUNT 3.71 10/6/uL (4.7-6.1); WHITE BLOOD CELLS 14.2 10/3/uL (4.5-10.5)
[2017-01-08 06:44] LABS: CALCIUM, SERUM 8.7 MG/DL (8.5-10.4); CHLORIDE, SERUM 105 MMOL/L (96-112); CO2 (CARBON DIOXIDE) 26 MMOL/L (24-34); GFR AFRICAN AMERICAN 60 ML/MIN (>=60); GFR NON AFRICAN AMERICAN 52 ML/MIN (>=60); GLUCOSE, SERUM 109 MG/DL (60-99); PHOSPHORUS, SERUM 2.9 MG/DL (2.5-4.5); POTASSIUM, SERUM 3.7 MMOL/L (3.5-5.3); SODIUM, SERUM 140 MMOL/L (135-148)
[2017-01-08 06:49] LABS: BUN (BLOOD UREA NITROGEN) 21 MG/DL (6-23)
[2017-01-08 06:52] LABS: BASOPHILS 1 %; BASOPHILS ABSOLUTE (CALC) 0.14 10/3/uL (0.0-0.16); EOSINOPHILS 3 %; EOSINOPHILS ABSOLUTE (CALC) 0.43 10/3/uL (0.0-0.53); IMMATURE GRANS ABSOLUTE (CALC) 0.14 10/3/uL (0.0-0.11); LYMPHOCYTES 15 %; LYMPHOCYTES ABSOLUTE (CALC) 2.13 10/3/uL (0.67-4.30); METAMYELOCYTES 1 %; MONOCYTES 7 %; MONOCYTES ABSOLUTE (CALC) 0.99 10/3/uL (0.21-1.20); NEUTROPHILS ABSOLUTE (CALC) 10.37 10/3/uL (2.02-8.40); PLATELET ESTIMATE ADQ (ADEQUATE); SEGMENTED NEUTROPHIL (0) 73 %; TOTAL NUCLEATED CELLS 100
[2017-01-08 06:53] LABS: POLYCHROMASIA 1+ (2-5/OIF) (0-1/OIF); TOXIC GRANULATION 1+; VACUOLATED NEUTROPHILES OCC
[2017-01-09 06:06] LABS: HEMATOCRIT 32.5 % (40.0-51.0); HEMOGLOBIN 11.2 g/dL (13.6-17.8); MANUAL DIFF YES %; MEAN CORPUS HGB CONC 34.5 g/dL (32.0-36.0); MEAN CORPUSCULAR HEMOGLOB 28.4 pg (26.0-34.0); MEAN CORPUSCULAR VOLUME 82.5 fL (80-100); PLATELET COUNT 427 10/3/uL (150-400); RBC DISTRIBUTION WIDTH 14.3 % (12.0-16.0); RED CELL COUNT 3.94 10/6/uL (4.7-6.1)
[2017-01-09 06:19] LABS: CALCIUM, SERUM 8.7 MG/DL (8.5-10.4); CHLORIDE, SERUM 100 MMOL/L (96-112); CO2 (CARBON DIOXIDE) 26 MMOL/L (24-34); CREATININE 1.23 MG/DL (0.70-1.30); GFR AFRICAN AMERICAN 64 ML/MIN (>=60); GFR NON AFRICAN AMERICAN 55 ML/MIN (>=60); GLUCOSE, SERUM 113 MG/DL (60-99); POTASSIUM, SERUM 3.9 MMOL/L (3.5-5.3); SODIUM, SERUM 139 MMOL/L (135-148)
[2017-01-09 06:20] LABS: BUN (BLOOD UREA NITROGEN) 17 MG/DL (6-23)
[2017-01-09 06:49] LABS: BAND NEUTROPHILS 1 %; EOSINOPHILS 3 %; EOSINOPHILS ABSOLUTE (CALC) 0.48 10/3/uL (0.0-0.53); IMMATURE GRANS ABSOLUTE (CALC) 0.16 10/3/uL (0.0-0.11); LYMPHOCYTES 9 %; LYMPHOCYTES ABSOLUTE (CALC) 1.44 10/3/uL (0.67-4.30); METAMYELOCYTES 1 %; MONOCYTES 12 %; MONOCYTES ABSOLUTE (CALC) 1.92 10/3/uL (0.21-1.20); PLATELET ESTIMATE SLT INC (ADEQUATE); SEGMENTED NEUTROPHIL (0) 74 %; TOTAL NUCLEATED CELLS 100
[2017-01-09 06:50] LABS: RBC MORPHOLOGY NORM (NORMAL); TOXIC GRANULATION 1+; VACUOLATED NEUTROPHILES OCC
[2017-01-09 06:57] LABS: PROCALCITONIN 0.91 ng/mL (<0.5)
[2017-01-09 07:04] LABS: SED RATE 77 MM/HR (0-15)
[2017-01-09 21:32] LABS: BD FL LYMPH (NOT ORD) 1 %; BF BASO (NOT OF) 0 %; BF LARGE MONONUCLEAR 7 %; BODY FLUID EOS (NOT ORD) 0 %; BODY FLUID SEG (NOT ORD) 92 %
[2017-01-09 21:33] LABS: BD FL SOURCE (NOT ORD) SYNOVIAL-RIGHT ELBOW; BF TOTAL CELL CT (NOT ORD 36980 /MM3; BODY FLUID RBC (NOT ORD) 10000 /MM3
[2017-01-10 05:26] LABS: BASOPHILS 0.1 %; BASOPHILS ABSOLUTE 0.02 10/3/uL (0.0-0.16); EOSINOPHILS 0.1 %; EOSINOPHILS ABSOLUTE 0.02 10/3/uL (0.0-0.53); HEMATOCRIT 30.4 % (40.0-51.0); HEMOGLOBIN 10.5 g/dL (13.6-17.8); IMMATURE GRANULOCYTES ABSOLUTE 0.34 10/3/uL (0.0-0.11); LYMPHOCYTES 8.8 %; MEAN CORPUS HGB CONC 34.5 g/dL (32.0-36.0); MEAN CORPUSCULAR HEMOGLOB 28.3 pg (26.0-34.0); MEAN CORPUSCULAR VOLUME 81.9 fL (80-100); MEAN PLATELET VOLUME 9.6 fL (9.2-13.0); MONOCYTES 13.4 %; MONOCYTES ABSOLUTE 2.28 10/3/uL (0.21-1.20); NEUTROPHILS 75.6 %; NEUTROPHILS ABSOLUTE 12.84 10/3/uL (2.02-8.40); PLATELET COUNT 486 10/3/uL (150-400); RBC DISTRIBUTION WIDTH 14.3 % (12.0-16.0); RED CELL COUNT 3.71 10/6/uL (4.7-6.1)
[2017-01-10 05:36] LABS: MANUAL DIFF NO %
[2017-01-10 16:37] LABS: ASCORBIC ACID (UR NOT ORDER) NEG (NEG); BILIRUBIN, URINE NEGATIVE (NEG); KETONE, URINE NEGATIVE (NEG); LEUKOCYTE ESTERASE(NOT OR NEG (NEG); WBC (NOT ORDERED) (RFLEX) 3 (0-5)
[2017-01-11 05:00] LABS: BASOPHILS 0.3 %; BASOPHILS ABSOLUTE 0.05 10/3/uL (0.0-0.16); EOSINOPHILS 0.3 %; EOSINOPHILS ABSOLUTE 0.06 10/3/uL (0.0-0.53); HEMATOCRIT 31.7 % (40.0-51.0); HEMOGLOBIN 10.9 g/dL (13.6-17.8); IMMATURE GRANULOCYTES 0.8 %; IMMATURE GRANULOCYTES ABSOLUTE 0.16 10/3/uL (0.0-0.11); LYMPHOCYTES 8.5 %; LYMPHOCYTES ABSOLUTE 1.67 10/3/uL (0.67-4.30); MEAN CORPUS HGB CONC 34.4 g/dL (32.0-36.0); MEAN CORPUSCULAR HEMOGLOB 28.5 pg (26.0-34.0); MEAN PLATELET VOLUME 9.4 fL (9.2-13.0); MONOCYTES 13.2 %; MONOCYTES ABSOLUTE 2.61 10/3/uL (0.21-1.20); NEUTROPHILS 76.9 %; NEUTROPHILS ABSOLUTE 15.16 10/3/uL (2.02-8.40); PLATELET COUNT 545 10/3/uL (150-400); RBC DISTRIBUTION WIDTH 14.5 % (12.0-16.0); RED CELL COUNT 3.82 10/6/uL (4.7-6.1); WHITE BLOOD CELLS 19.7 10/3/uL (4.5-10.5)
[2017-01-11 05:01] LABS: MANUAL DIFF NO %
[2017-01-11 05:16] LABS: A/G RATIO 0.4 (0.7-1.9); ALBUMIN 1.8 G/DL (3.5-5.0); ALKALINE PHOSPHATASE 68 U/L (45-117); BUN (BLOOD UREA NITROGEN) 15 MG/DL (6-23); CALCIUM, SERUM 8.7 MG/DL (8.5-10.4); CHLORIDE, SERUM 100 MMOL/L (96-112); CO2 (CARBON DIOXIDE) 25 MMOL/L (24-34); CREATININE 1.16 MG/DL (0.70-1.30); GFR AFRICAN AMERICAN 69 ML/MIN (>=60); GFR NON AFRICAN AMERICAN 60 ML/MIN (>=60); GLOBULIN 4.7 G/DL (2.5-4.1); SGOT(AST) 28 U/L (5-40); SGPT(ALT) 23 U/L (5-65); SODIUM, SERUM 136 MMOL/L (135-148); TOTAL BILIRUBIN 0.9 MG/DL (0-1.2); TOTAL PROTEIN 6.5 G/DL (6.0-8.5)
[2017-01-11 05:27] LABS: GLUCOSE, SERUM 83 MG/DL (60-99)
[2017-01-12 06:35] LABS: BASOPHILS 0.3 %; BASOPHILS ABSOLUTE 0.05 10/3/uL (0.0-0.16); EOSINOPHILS 1.7 %; EOSINOPHILS ABSOLUTE 0.26 10/3/uL (0.0-0.53); HEMATOCRIT 30.5 % (40.0-51.0); HEMOGLOBIN 10.5 g/dL (13.6-17.8); IMMATURE GRANULOCYTES 0.8 %; IMMATURE GRANULOCYTES ABSOLUTE 0.13 10/3/uL (0.0-0.11); LYMPHOCYTES 9.3 %; LYMPHOCYTES ABSOLUTE 1.43 10/3/uL (0.67-4.30); MEAN CORPUS HGB CONC 34.4 g/dL (32.0-36.0); MEAN CORPUSCULAR HEMOGLOB 28.5 pg (26.0-34.0); MEAN CORPUSCULAR VOLUME 82.9 fL (80-100); MEAN PLATELET VOLUME 9.5 fL (9.2-13.0); MONOCYTES 10.6 %; MONOCYTES ABSOLUTE 1.64 10/3/uL (0.21-1.20); NEUTROPHILS 77.3 %; NEUTROPHILS ABSOLUTE 11.91 10/3/uL (2.02-8.40); PLATELET COUNT 609 10/3/uL (150-400); RBC DISTRIBUTION WIDTH 14.2 % (12.0-16.0); RED CELL COUNT 3.68 10/6/uL (4.7-6.1); WHITE BLOOD CELLS 15.4 10/3/uL (4.5-10.5)
[2017-01-12 06:38] LABS: MANUAL DIFF NO %
[2017-01-12 07:14] LABS: BUN (BLOOD UREA NITROGEN) 16 MG/DL (6-23); CALCIUM, SERUM 8.5 MG/DL (8.5-10.4); CHLORIDE, SERUM 101 MMOL/L (96-112); CO2 (CARBON DIOXIDE) 25 MMOL/L (24-34); CREATININE 1.25 MG/DL (0.70-1.30); GFR AFRICAN AMERICAN 63 ML/MIN (>=60); GFR NON AFRICAN AMERICAN 54 ML/MIN (>=60); GLUCOSE, SERUM 92 MG/DL (60-99); POTASSIUM, SERUM 4.2 MMOL/L (3.5-5.3); SODIUM, SERUM 138 MMOL/L (135-148)
[2017-01-13 06:10] LABS: BASOPHILS 0.2 %; BASOPHILS ABSOLUTE 0.04 10/3/uL (0.0-0.16); EOSINOPHILS 1.1 %; HEMOGLOBIN 9.4 g/dL (13.6-17.8); IMMATURE GRANULOCYTES 0.5 %; IMMATURE GRANULOCYTES ABSOLUTE 0.09 10/3/uL (0.0-0.11); LYMPHOCYTES 7.5 %; LYMPHOCYTES ABSOLUTE 1.39 10/3/uL (0.67-4.30); MEAN CORPUS HGB CONC 34.4 g/dL (32.0-36.0); MEAN CORPUSCULAR HEMOGLOB 28.6 pg (26.0-34.0); MEAN PLATELET VOLUME 9.2 fL (9.2-13.0); MONOCYTES 9.1 %; MONOCYTES ABSOLUTE 1.68 10/3/uL (0.21-1.20); NEUTROPHILS 81.6 %; NEUTROPHILS ABSOLUTE 15.12 10/3/uL (2.02-8.40); PLATELET COUNT 655 10/3/uL (150-400); RBC DISTRIBUTION WIDTH 14.3 % (12.0-16.0); RED CELL COUNT 3.29 10/6/uL (4.7-6.1); WHITE BLOOD CELLS 18.5 10/3/uL (4.5-10.5)
[2017-01-13 06:12] LABS: HEMATOCRIT 27.3 % (40.0-51.0); MANUAL DIFF NO %
[2017-01-13 06:22] LABS: BUN (BLOOD UREA NITROGEN) 16 MG/DL (6-23); CALCIUM, SERUM 8.9 MG/DL (8.5-10.4); CHLORIDE, SERUM 101 MMOL/L (96-112); CO2 (CARBON DIOXIDE) 25 MMOL/L (24-34); CREATININE 1.39 MG/DL (0.70-1.30); GFR AFRICAN AMERICAN 55 ML/MIN (>=60); GFR NON AFRICAN AMERICAN 48 ML/MIN (>=60); POTASSIUM, SERUM 3.9 MMOL/L (3.5-5.3); SODIUM, SERUM 137 MMOL/L (135-148)
[2017-01-13 06:23] LABS: GLUCOSE, SERUM 115 MG/DL (60-99)
[2017-01-13 18:02] LABS: ASCORBIC ACID (UR NOT ORDER) NEG (NEG); BILIRUBIN, URINE NEGATIVE (NEG); KETONE, URINE NEGATIVE (NEG); LEUKOCYTE ESTERASE(NOT OR NEG (NEG); WBC (NOT ORDERED) (RFLEX) 1 (0-5)
[2017-01-14 06:02] LABS: BASOPHILS 0.4 %; BASOPHILS ABSOLUTE 0.07 10/3/uL (0.0-0.16); EOSINOPHILS 1.3 %; EOSINOPHILS ABSOLUTE 0.24 10/3/uL (0.0-0.53); HEMATOCRIT 28.9 % (40.0-51.0); HEMOGLOBIN 9.9 g/dL (13.6-17.8); IMMATURE GRANULOCYTES 0.5 %; IMMATURE GRANULOCYTES ABSOLUTE 0.09 10/3/uL (0.0-0.11); LYMPHOCYTES 8.5 %; LYMPHOCYTES ABSOLUTE 1.56 10/3/uL (0.67-4.30); MEAN CORPUS HGB CONC 34.3 g/dL (32.0-36.0); MEAN CORPUSCULAR HEMOGLOB 28.1 pg (26.0-34.0); MEAN CORPUSCULAR VOLUME 82.1 fL (80-100); MEAN PLATELET VOLUME 9.1 fL (9.2-13.0); MONOCYTES 7.4 %; MONOCYTES ABSOLUTE 1.35 10/3/uL (0.21-1.20); NEUTROPHILS 81.9 %; NEUTROPHILS ABSOLUTE 14.97 10/3/uL (2.02-8.40); PLATELET COUNT 682 10/3/uL (150-400); RBC DISTRIBUTION WIDTH 14.4 % (12.0-16.0); RED CELL COUNT 3.52 10/6/uL (4.7-6.1); WHITE BLOOD CELLS 18.3 10/3/uL (4.5-10.5)
[2017-01-14 06:07] LABS: MANUAL DIFF NO %
[2017-01-14 06:24] LABS: A/G RATIO 0.3 (0.7-1.9); ALBUMIN 1.7 G/DL (3.5-5.0); BUN (BLOOD UREA NITROGEN) 17 MG/DL (6-23); CALCIUM, SERUM 8.9 MG/DL (8.5-10.4); CHLORIDE, SERUM 102 MMOL/L (96-112); CO2 (CARBON DIOXIDE) 28 MMOL/L (24-34); CREATININE 1.23 MG/DL (0.70-1.30); GFR AFRICAN AMERICAN 64 ML/MIN (>=60); GFR NON AFRICAN AMERICAN 55 ML/MIN (>=60); GLUCOSE, SERUM 112 MG/DL (60-99); POTASSIUM, SERUM 4.1 MMOL/L (3.5-5.3); SGOT(AST) 42 U/L (5-40); SGPT(ALT) 27 U/L (5-65); SODIUM, SERUM 139 MMOL/L (135-148); TOTAL BILIRUBIN 0.7 MG/DL (0-1.2); TOTAL PROTEIN 6.7 G/DL (6.0-8.5)
[2017-01-14 06:29] LABS: ALKALINE PHOSPHATASE 109 U/L (45-117)
[2017-01-14 23:06] LABS: PROCALCITONIN 0.48 ng/mL (<0.5)
[2017-01-15 04:38] LABS: BUN (BLOOD UREA NITROGEN) 19 MG/DL (6-23); CALCIUM, SERUM 8.8 MG/DL (8.5-10.4); CHLORIDE, SERUM 101 MMOL/L (96-112); CO2 (CARBON DIOXIDE) 28 MMOL/L (24-34); GFR AFRICAN AMERICAN 66 ML/MIN (>=60); GFR NON AFRICAN AMERICAN 57 ML/MIN (>=60); POTASSIUM, SERUM 3.7 MMOL/L (3.5-5.3); SODIUM, SERUM 139 MMOL/L (135-148)
[2017-01-15 04:39] LABS: GLUCOSE, SERUM 158 MG/DL (60-99)
[2017-01-15 04:41] LABS: BASOPHILS 0.4 %; BASOPHILS ABSOLUTE 0.05 10/3/uL (0.0-0.16); EOSINOPHILS 1.7 %; EOSINOPHILS ABSOLUTE 0.22 10/3/uL (0.0-0.53); HEMATOCRIT 27.9 % (40.0-51.0); HEMOGLOBIN 9.5 g/dL (13.6-17.8); IMMATURE GRANULOCYTES 0.7 %; IMMATURE GRANULOCYTES ABSOLUTE 0.09 10/3/uL (0.0-0.11); LYMPHOCYTES 11.9 %; LYMPHOCYTES ABSOLUTE 1.52 10/3/uL (0.67-4.30); MANUAL DIFF NO %; MEAN CORPUS HGB CONC 34.1 g/dL (32.0-36.0); MEAN CORPUSCULAR HEMOGLOB 28.2 pg (26.0-34.0); MEAN CORPUSCULAR VOLUME 82.8 fL (80-100); MEAN PLATELET VOLUME 9.2 fL (9.2-13.0); MONOCYTES 9.6 %; MONOCYTES ABSOLUTE 1.22 10/3/uL (0.21-1.20); NEUTROPHILS 75.7 %; NEUTROPHILS ABSOLUTE 9.63 10/3/uL (2.02-8.40); PLATELET COUNT 629 10/3/uL (150-400); RBC DISTRIBUTION WIDTH 14.4 % (12.0-16.0); RED CELL COUNT 3.37 10/6/uL (4.7-6.1); WHITE BLOOD CELLS 12.7 10/3/uL (4.5-10.5)
[2017-01-16 04:49] LABS: BASOPHILS 0.5 %; BASOPHILS ABSOLUTE 0.06 10/3/uL (0.0-0.16); EOSINOPHILS 2.3 %; HEMATOCRIT 27.7 % (40.0-51.0); HEMOGLOBIN 9.2 g/dL (13.6-17.8); IMMATURE GRANULOCYTES 0.5 %; IMMATURE GRANULOCYTES ABSOLUTE 0.06 10/3/uL (0.0-0.11); LYMPHOCYTES 8.5 %; LYMPHOCYTES ABSOLUTE 1.11 10/3/uL (0.67-4.30); MEAN CORPUS HGB CONC 33.2 g/dL (32.0-36.0); MEAN CORPUSCULAR VOLUME 84.5 fL (80-100); MONOCYTES 8.5 %; NEUTROPHILS 79.7 %; NEUTROPHILS ABSOLUTE 10.37 10/3/uL (2.02-8.40); PLATELET COUNT 623 10/3/uL (150-400); RBC DISTRIBUTION WIDTH 14.6 % (12.0-16.0); RED CELL COUNT 3.28 10/6/uL (4.7-6.1)
[2017-01-16 04:56] LABS: MANUAL DIFF NO %
[2017-01-16 04:59] LABS: BUN (BLOOD UREA NITROGEN) 16 MG/DL (6-23); CALCIUM, SERUM 8.8 MG/DL (8.5-10.4); CHLORIDE, SERUM 105 MMOL/L (96-112); CO2 (CARBON DIOXIDE) 27 MMOL/L (24-34); CREATININE 1.36 MG/DL (0.70-1.30); GFR AFRICAN AMERICAN 57 ML/MIN (>=60); GFR NON AFRICAN AMERICAN 49 ML/MIN (>=60); GLUCOSE, SERUM 132 MG/DL (60-99); POTASSIUM, SERUM 3.9 MMOL/L (3.5-5.3); SODIUM, SERUM 141 MMOL/L (135-148)
[2017-01-17 06:52] LABS: BASOPHILS 0.6 %; BASOPHILS ABSOLUTE 0.08 10/3/uL (0.0-0.16); EOSINOPHILS 2.7 %; EOSINOPHILS ABSOLUTE 0.34 10/3/uL (0.0-0.53); HEMATOCRIT 29.7 % (40.0-51.0); HEMOGLOBIN 9.9 g/dL (13.6-17.8); IMMATURE GRANULOCYTES 0.3 %; IMMATURE GRANULOCYTES ABSOLUTE 0.04 10/3/uL (0.0-0.11); LYMPHOCYTES 12.7 %; LYMPHOCYTES ABSOLUTE 1.63 10/3/uL (0.67-4.30); MANUAL DIFF NO %; MEAN CORPUS HGB CONC 33.3 g/dL (32.0-36.0); MEAN CORPUSCULAR HEMOGLOB 28.2 pg (26.0-34.0); MEAN CORPUSCULAR VOLUME 84.6 fL (80-100); MONOCYTES 8.1 %; MONOCYTES ABSOLUTE 1.04 10/3/uL (0.21-1.20); NEUTROPHILS 75.6 %; NEUTROPHILS ABSOLUTE 9.67 10/3/uL (2.02-8.40); PLATELET COUNT 635 10/3/uL (150-400); RBC DISTRIBUTION WIDTH 14.6 % (12.0-16.0); RED CELL COUNT 3.51 10/6/uL (4.7-6.1); WHITE BLOOD CELLS 12.8 10/3/uL (4.5-10.5)
[2017-01-18 06:40] LABS: BASOPHILS 0.5 %; BASOPHILS ABSOLUTE 0.06 10/3/uL (0.0-0.16); EOSINOPHILS 2.7 %; EOSINOPHILS ABSOLUTE 0.33 10/3/uL (0.0-0.53); HEMATOCRIT 29.4 % (40.0-51.0); HEMOGLOBIN 9.7 g/dL (13.6-17.8); IMMATURE GRANULOCYTES 0.6 %; IMMATURE GRANULOCYTES ABSOLUTE 0.08 10/3/uL (0.0-0.11); LYMPHOCYTES 14.5 %; LYMPHOCYTES ABSOLUTE 1.78 10/3/uL (0.67-4.30); MEAN CORPUSCULAR HEMOGLOB 27.8 pg (26.0-34.0); MEAN CORPUSCULAR VOLUME 84.2 fL (80-100); MEAN PLATELET VOLUME 9.2 fL (9.2-13.0); MONOCYTES 8.8 %; MONOCYTES ABSOLUTE 1.08 10/3/uL (0.21-1.20); NEUTROPHILS 72.9 %; NEUTROPHILS ABSOLUTE 8.98 10/3/uL (2.02-8.40); PLATELET COUNT 622 10/3/uL (150-400); RBC DISTRIBUTION WIDTH 14.8 % (12.0-16.0); RED CELL COUNT 3.49 10/6/uL (4.7-6.1); WHITE BLOOD CELLS 12.3 10/3/uL (4.5-10.5)
[2017-01-18 06:50] LABS: BUN (BLOOD UREA NITROGEN) 19 MG/DL (6-23); CALCIUM, SERUM 9.1 MG/DL (8.5-10.4); CO2 (CARBON DIOXIDE) 29 MMOL/L (24-34); CREATININE 1.17 MG/DL (0.70-1.30); GFR AFRICAN AMERICAN 68 ML/MIN (>=60); GFR NON AFRICAN AMERICAN 59 ML/MIN (>=60); GLUCOSE, SERUM 120 MG/DL (60-99); POTASSIUM, SERUM 3.7 MMOL/L (3.5-5.3); SODIUM, SERUM 136 MMOL/L (135-148)
[2017-01-18 06:56] LABS: CHLORIDE, SERUM 95 MMOL/L (96-112)
[2017-01-18 06:58] LABS: MANUAL DIFF NO %
[2017-02-13] MEDS ORDERED: NORV5 PO (13:47)
[2017-02-13] MEDS ORDERED: BACIT TOP (13:48)
[2017-02-13] MEDS ORDERED: MAGOX4 PO (13:48)
[2017-02-13] MEDS ORDERED: PRILO PO (13:48)
[2017-02-13] MEDS ORDERED: VITC500 PO (13:49)
[2017-02-13] MEDS ORDERED: MOMUD PO (13:49)
[2017-02-13] MEDS ORDERED: BISR PR (13:49)
[2017-02-13] MEDS ORDERED: ULTRAM50 PO (13:50)
[2017-02-14] MEDS ORDERED: [UNRECOGNIZED DRUG - OTHER] PO (11:47)
[2017-02-14] MEDS ORDERED: FLEETS ENEMA PR (11:48)
[2017-03-26] MEDS ORDERED: SILVER SULFADIAZINE TOP (11:47)
[2017-05-27] MEDS ORDERED: SANTYL TOP (07:26)
[2017-05-27] MEDS ORDERED: ULTRAM50 PO (07:29)
[2017-06-21] MEDS ORDERED: IODOSORB TOP (10:10)
[2017-06-21] MEDS ORDERED: ZINC220C PO (10:13)
[2017-06-21] MEDS ORDERED: NORCO1 TA1 PO (10:15)
[2017-06-24] MEDS ORDERED: JUVEN PO (08:05)
[2017-06-24] MEDS ORDERED: SANTYL OINTMENT T (08:15)
== END 2017-01-18 21:02 | DRG 699 ==
LOC: ER 13:55 → 4SO 18:13
PROVIDERS: Internal Medicine; Nurse Practitioner; Physician Assistant; Surgery Surgery of the Hand
PROC: 0T9B70Z Drainage of Bladder with Drainage Device, Via Natural or Artificial Opening (ICD-10-PCS; principal; 2017-01-04)
PROC: 0R9L3ZX Drainage of Right Elbow Joint, Percutaneous Approach, Diagnostic (ICD-10-PCS; 2017-01-09)
PROC: 0T9B30Z Drainage of Bladder with Drainage Device, Percutaneous Approach (ICD-10-PCS; 2017-01-14)
PROC: 0VTTXZZ Resection of Prepuce, External Approach (ICD-10-PCS; 2017-01-15)
DX: T83.028A Displacement of other urinary catheter, initial encounter (principal); T83.511A Infection and inflammatory reaction due to indwelling urethral catheter, initial encounter; N17.9 Acute kidney failure, unspecified; M00.821 Arthritis due to other bacteria, right elbow; E11.22 Type 2 diabetes mellitus with diabetic chronic kidney disease; E11.65 Type 2 diabetes mellitus with hyperglycemia; N13.8 Other obstructive and reflux uropathy; N39.0 Urinary tract infection, site not specified; R78.81 Bacteremia; N36.0 Urethral fistula; Y84.6 Urinary catheterization as the cause of abnormal reaction of the patient, or of later complication, without mention of misadventure at the time of the procedure; Y92.239 Unspecified place in hospital as the place of occurrence of the external cause; Z91.81 History of falling; G30.9 Alzheimer's disease, unspecified; F02.80 Dementia in other diseases classified elsewhere, unspecified severity, without behavioral disturbance, psychotic disturbance, mood disturbance, and anxiety; J44.9 Chronic obstructive pulmonary disease, unspecified; R91.8 Other nonspecific abnormal finding of lung field; Z87.81 Personal history of (healed) traumatic fracture; I12.9 Hypertensive chronic kidney disease with stage 1 through stage 4 chronic kidney disease, or unspecified chronic kidney disease; N18.2 Chronic kidney disease, stage 2 (mild); F10.21 Alcohol dependence, in remission; Z87.891 Personal history of nicotine dependence; F12.21 Cannabis dependence, in remission; Y95 Nosocomial condition; N48.89 Other specified disorders of penis; N47.1 Phimosis; N47.2 Paraphimosis; B95.2 Enterococcus as the cause of diseases classified elsewhere
CPT/HCPCS: 51102; 71010; 73080-RT; 76942; 77002; 80048; 80053; 80069; 80202; 81001; 82272; 82962; 83036; 83605; 83735; 84100; 84145; 84550; 85025; 85652; 87015; 87040; 87070; 87075; 87077; 87086; 87102; 87116; 87186; 87205; 88304; 89051; 89060; 96374; 97110-GP; 97161-GP; 97164-GP; 97530-GP; 99285; A9270-GY; C1725; C1769; J1956; J2270; J2543; J3010; J3370; Q9967